=== PATIENT | male | born 1985 | race Caucasian/White ===

== ENCOUNTER 2022-01-02 11:57 | Emergency (ER) | payer BC, OTHER ==
[2022-01-02] MEDS ORDERED: Tetracaine HCl/PF 0.5% 4 ML Bottle EYELF ONE (12:16)
[2022-01-02] MEDS ORDERED: Fluorescein 1 MG Ophth Strip EYELF ONE (12:17)
[2022-01-02] MEDS ORDERED: Gentamicin 0.3% Ophth Soln 5 ML Bottle EYELF ONE (12:17)
[2022-01-02] MEDS ORDERED: Diphtheria,Pertussis(Acell),Tetanus Vaccine 0.5 ML Syringe IM ONE (12:31)
== END 2022-01-02 12:51 | disposition home or self-care (01) ==
LOC: DL.ED 11:57
DX: S00.12XA Contusion of left eyelid and periocular area, initial encounter (principal); S05.8X2A Other injuries of left eye and orbit, initial encounter; Z88.0 Allergy status to penicillin; Z88.1 Allergy status to other antibiotic agents; Z23 Encounter for immunization; W22.8XXA Striking against or struck by other objects, initial encounter; Y99.0 Civilian activity done for income or pay
CPT/HCPCS: 90471; 90715; 99283-25; A9270-GY